=== PATIENT | male | born 1955 | race Caucasian/White ===

== ENCOUNTER → 2017-03-09 | Outpatient (CLI) | payer MEDICARE, MEDICAID | END | disposition home or self-care (01) | LOC: PCVCCLINIC 16:11 | PROVIDERS: ATTEND Internal Medicine Cardiovascular Disease | DX: I73.9 Peripheral vascular disease, unspecified (principal); E78.1 Pure hyperglyceridemia; I25.10 Atherosclerotic heart disease of native coronary artery without angina pectoris; J44.9 Chronic obstructive pulmonary disease, unspecified; I25.5 Ischemic cardiomyopathy; E11.9 Type 2 diabetes mellitus without complications; I77.9 Disorder of arteries and arterioles, unspecified; Z72.0 Tobacco use | CPT/HCPCS: 80061; 93005; G0463 ==

== ENCOUNTER → 2017-05-18 | Outpatient (CLI) | payer MEDICARE, MEDICAID ==
--- NOTE | 2017-05-18 12:58 | PCVCIMAG ---
EXAM: BILATERAL RENAL ULTRASOUND AND BILATERAL RENAL DUPLEX INDICATION: Hypertension FINDINGS: Right kidney: Length measures 12.4 cm. No hydronephrosis or extensive renal scarring. Several benign cysts in the kidney the largest in the upper pole measuring 1.9 x 2.5 cm. Right renal duplex: Adequate technical quality. No sonographic evidence of renal artery stenosis. The aortic to renal artery ratio is 2.5. The renal vein is patent. Left kidney: Length measures 11.2 cm. No hydronephrosis or extensive renal scarring. Couple of benign cysts in the mid pole the largest measuring 1.5 x 1.8 cm. Left renal duplex: Adequate technical quality. No sonographic evidence of renal artery stenosis. The aortic to renal artery ratio is 3.1. The renal vein is patent. Bladder: No obvious abnormalities. IMPRESSION: No significant renal artery stenosis. No hydronephrosis bilaterally. LOC:[place] [id number]
--- NOTE | 2017-05-21 19:09 | PCVCIMAG ---
APPROVED REPORT Study performed: 05/18/2017 10:43:54 EXAM: Comprehensive 2D, Doppler, and color-flow Echocardiogram Status: routine Other Information Study Quality: Adequate Risk Factors: Cardiac Risk Factors: DM Indications ICD: Pacemaker CAD Cardiomyopathy Ischemic Cardiomyopathy 2D Dimensions LVEF(%): 15.71 (>50%) IVSd: 13.42 (7-11mm) LVDd: 63.46 mm PWd: 12.67 (7-11mm) LVDs: 58.88 (25-40mm) Left Atrium: 54.17 (27-40mm) Aortic Root: 31.63 mm LV Single Plane 4CH: 25.11 % LV Single Plane 2CH: 26.02 %[employer] LVEF: 25.57 % Biplane EF: 25.0 % Volumes Left Atrial Volume (Systole) Single Plane 4CH: 90.07 mLSingle Plane 2CH: 100.32 mL LA ESV Index: 67.00 mL/m2 Aortic Valve AoV Peak Yoan.: 1.42 m/s AO Peak Gr.: 8.48 mmHgLVOT Max P.44 mmHg LVOT Max V: 0.60 m/s Mitral Valve E/A Ratio: 0.5 MV Decel. Time: 373.82 ms MV E Max Yoan.: 0.44 m/s MV A Yoan.: 0.86 m/s IVRT: 155.71 ms Pulmonary Valve PV Peak Yoan.: 1.12 m/sPV Peak Gr.: 5.16 mmHg Pulmonary Vein P Vein S: 0.21 m/sP Vein A: 0.37 m/s P Vein D: 0.26 m/sP Vein A Dur.: 96.9 msec P Vein S/D Ratio: 0.81 Tricuspid Valve TR Peak Yoan.: 2.28 m/s TR Peak Gr.: 20.88 mmHg Left Ventricle Left ventricle is mildly dilated. There is normal LV segmental wall motion. Mild concentric left ventricular hypertrophy. Left ventricular ejection fraction is severely decreased. LVEF is 26%. Grade I - abnormal relaxation pattern. Right Ventricle The right ventricle is normal size. The right ventricular systolic function is normal. Pacemaker lead is present in the right ventricle. Atria The left atrium size is moderate-severely dilated. Mildly dilated right atrium. Pacemaker lead is present in the right atrium. Aortic Valve The aortic valve is normal in structure. No aortic regurgitation is present. There is no aortic valvular stenosis. Mitral Valve The mitral valve is normal in structure. Mild mitral regurgitation. No evidence of mitral valve stenosis. Tricuspid Valve The tricuspid valve is normal in structure. Mild tricuspid regurgitation with PAP of 28 mmHg. Pulmonic Valve The pulmonary valve is normal in structure. There is mild pulmonic valvular regurgitation. Great Vessels The aortic root is normal in size. IVC is normal in size and collapses with >50% inspiration Pericardium There is no pericardial effusion. <Conclusion> Left ventricle is mildly dilated. Mild concentric left ventricular hypertrophy. Left ventricular ejection fraction is severely decreased. LVEF is 26%. Grade I - abnormal relaxation pattern. The right ventricle is normal size. The left atrium size is moderate-severely dilated. Mildly dilated right atrium. Pacemaker lead is present in the right atrium. The aortic valve is normal in structure. Mild mitral regurgitation. There is no pericardial effusion. There is mild pulmonic valvular regurgitation.
== END | disposition home or self-care (01) ==
LOC: PCVCIMAG 10:12
PROVIDERS: ATTEND Internal Medicine Cardiovascular Disease
DX: I34.0 Nonrheumatic mitral (valve) insufficiency (principal); I07.1 Rheumatic tricuspid insufficiency; I37.1 Nonrheumatic pulmonary valve insufficiency; I25.10 Atherosclerotic heart disease of native coronary artery without angina pectoris; J44.9 Chronic obstructive pulmonary disease, unspecified; E78.00 Pure hypercholesterolemia, unspecified; I10 Essential (primary) hypertension; I25.5 Ischemic cardiomyopathy; I73.9 Peripheral vascular disease, unspecified; I77.89 Other specified disorders of arteries and arterioles; E78.1 Pure hyperglyceridemia; Z95.810 Presence of automatic (implantable) cardiac defibrillator
CPT/HCPCS: 76770; 80061; 93005; 93306; 93975; G0463